=== PATIENT | female | born 1965 | race Caucasian/White ===

== ENCOUNTER 2022-08-23 14:51 | Outpatient (CLI) | payer BC, SELFPAY ==
--- NOTE | ~2022-08-23 | XR_ITS ---
XR lumbar spine 2-3V 08/23/2022 15:20 Indication: Low back pain Procedure: 4 views lumbar spine Comparison: No prior studies for comparison. Findings: There is levoscoliosis. There is advanced multilevel disc narrowing and endplate degenerati ve change. There is left lateral listhesis at L3-4. There is no acute fracture. There is advanced mul tilevel facet hypertrophy. There are cholecystectomy clips. Impression: 1: Severe lumbar spondylosis with levoscoliosis. Reviewed, dictated and finalized at location B. Impression: 1: Severe lumbar spondylosis with levoscoliosis.
== END 2022-08-23 14:52 | disposition home or self-care (01) ==
PROVIDERS: PCP Internal Medicine; Visit Provider Neurological Surgery
DX: M47.816 Spondylosis without myelopathy or radiculopathy, lumbar region (principal); M41.9 Scoliosis, unspecified
CPT/HCPCS: 72100

== ENCOUNTER 2022-10-20 13:53 | Emergency (ER) | payer BC, SELFPAY ==
--- NOTE | ~2022-10-20 | US_ITS ---
EXAMINATION: US venous doppler UE LT DATE: 10/20/2022 15:02 INDICATION: Left arm swelling/bruising. TECHNIQUE: Grayscale ultrasound images without and with compression and Doppler ultrasound images of the left upper extremity veins were obtained. COMPARISON: None.. FINDINGS: The visualized portions of the left internal jugular vein, subclavian vein, axillary vein, brachial v eins, basilic vein, cephalic vein, radial vein, and ulnar vein are patent. 3.8 x 1.3 x 2.5 cm lobulat ed complex avascular subcutaneous mass in the area of clinical concern. IMPRESSION: 1. No deep venous thrombosis. 2. Nonspecific subcutaneous complex mass in the area of clinical concern. Differential is broad and m ay include abscess, hematoma, bursitis, extension of the joint recess from the elbow, or other cystic and solid soft tissue mass. Reviewed, dictated and finalized at location K. [employer] IMPRESSION: 1. No deep venous thrombosis. 2. Nonspecific subcutaneous complex mass in the area of clinical concern. Diffe rential is broad and may include abscess, hematoma, bursitis, extension of the joint recess from the elbow, or other cystic and solid soft tissue mass.
[2022-10-20 13:58] VITALS: BP 154/98; PULSE 103; RESP 18; TEMP 36.6; O2SAT 100
[2022-10-20] MEDS: HYDROcodone/acetaminophen (*CRX) 5-325 MG TABLET 1 TAB PO (14:32)
--- NOTE | 2022-10-20 15:29 | ED.EXTPRO ---
HPI - Extremity Problem General Chief complaint: Extremity Problem,Nontraumatic Stated complaint: left arm pain Time Seen by Provider: 10/20/22 14:10 History of Present Illness HPI Narrative: Patient is a 57-year-old female who presents ER with left forearm pain. She reports its been ongoing intermittently over the last month. She had an outpatient ultrasound at a different facility and she reports that she had either a abscess or a hematoma in the area. She does not recall any trauma. She [place] and was using her rolling walker and had been a long day and she had a lot of stress on the arm. She reports she was filling an antibiotic prescription today that was prescribed 5 days ago and the pharmacist thought she should be evaluated. Patient does have some new bruising that occurred over the last day to the left forearm. No erythema or warmth. Denies fevers or chills or sweats. She has pain with extending her arm fully. No numbness or tingling in the hands or forearm. Related Data Home Medications Medication Instructions Recorded Confirmed buspirone 10 mg tablet mg 10/20/22 10/20/22 celecoxib 200 mg capsule mg 10/20/22 doxycycline hyclate 100 mg capsule mg 10/20/22 hydrochlorothiazide 25 mg tablet mg 10/20/22 montelukast 10 mg tablet mg 10/20/22 omeprazole 40 mg capsule,delayed mg 10/20/22 release oxybutynin chloride 10 mg mg PO 10/20/22 tablet,extended release 24 hr pregabalin 25 mg capsule mg 10/20/22 thiamine HCl (vitamin B1) 100 mg mg 10/20/22 tablet Allergies Allergy/AdvReac Type Severity Reaction Status Date / Time LISA Inhibitors Allergy Mild Rash Verified 10/20/22 14:19 losartan Allergy Mild Rash Verified 10/20/22 14:19 tramadol Allergy Mild rash Verified 10/20/22 14:19 Review of Systems Review of Systems: All systems reviewed & are unremarkable except as noted in HPI and below Constitutional: Constitutional: Denies chills, Denies fatigue and Denies fever(s) ENT: Denies nasal congestion and Denies sore throat Cardiovascular: Cardiovascular: Denies chest pain, Denies rapid heart rate and Denies radiating jaw, neck or arm pain Respiratory: Respiratory: Denies cough and Denies dyspnea Gastrointestinal: Gastrointestinal: Denies abdominal pain, Denies nausea and Denies vomiting Comments: Left forearm pain Musculoskeletal: Musculoskeletal: Denies arthralgias and Denies joint swelling Integumentary/Breasts: Skin/Breast: Denies erythema and Denies rash Comments: Left forearm bruising Neurologic: Denies focal weakness and Denies numbness PMFSH Past Medical History Medical History Lumbar stenosis Scoliosis Surgical History Surgical History H/O resection of stomach H/O: hysterectomy History of carpal tunnel surgery History of cervical spinal surgery History of cholecystectomy History of lumbar surgery Family History Family History Other Breast cancer Heart disease Hypertension Social History Social History Smoking status: Former smoker Tobacco type: cigarettes Alcohol intake: current Substance use: current Substance use type: marijuana Exam Narrative: GENERAL: Well-appearing, well-nourished, and in no acute distress. HEAD: Normocephalic, atraumatic. EYES: PERRL and EOMI. ENT: Mucous membranes moist. CHEST: Clear to auscultation. No respiratory distress. HEART: Regular rate and rhythm. Normal peripheral pulses. ABDOMEN: Soft, nontender, nondistended. EXTREMITIES: Normal range of motion. No edema. Left forearm mass that soft and rounded just distal to the to the antecubital fossa. There is also a prominent vein and some scattered areas of bruising. No cellulitis. Patient has increased pain
== END 2022-10-20 16:05 | disposition home or self-care (01) ==
PROVIDERS: Emergency Provider Emergency Medicine; PCP Internal Medicine
DX: R22.32 Localized swelling, mass and lump, left upper limb (principal); Z90.710 Acquired absence of both cervix and uterus; Z90.3 Acquired absence of stomach [part of]; Z87.891 Personal history of nicotine dependence
CPT/HCPCS: 93971; 99284; A9270